=== PATIENT | male | born 1965 | race Caucasian/White ===

== ENCOUNTER → 2016-07-16 | Outpatient (CLI) | payer BC ==
--- NOTE | 2016-07-17 08:44 | XR ---
Left ankle HISTORY: Trauma and pain 3 views of the left ankle and 3 views of the left foot correlated to left foot same date Soft tissue calcification along the distribution of the posterior leg is likely due to prior trauma. Large plantar calcaneal spur is present, large enthesophyte at the insertion of the Achilles tendon. Bone mineralization and alignment are maintained. Spurring present at the intertarsal joints. There i s soft tissue swelling. No acute fracture or dislocation is evident. Ossific density distal to the fi bula distal to be well-corticated and likely due to remote trauma. Flexion deformity present at the f ifth digit. Degenerative changes present at the metatarsophalangeal joint of the first digit. IMPRESSION: Soft tissue swelling. Correlate for point tenderness, suspect remote trauma at the medial ankle.
== END | disposition home or self-care (01) ==
LOC: RADXRYALE 16:42
PROVIDERS: ATTEND Physician Assistant Medical
DX: S99.912A Unspecified injury of left ankle, initial encounter (principal); M79.89 Other specified soft tissue disorders; M79.672 Pain in left foot

== ENCOUNTER → 2018-03-19 | Outpatient (CLI) | payer BC ==
--- NOTE | 2018-03-19 12:26 | XR ---
EXAMINATION TYPE: XR cervical spine limited DATE OF EXAM: 03/19/2018 COMPARISON: NONE HISTORY: Left-sided neck pain TECHNIQUE: Three views are submitted. FINDINGS: The odontoid is intact. There are no compression deformities. The prevertebral soft tissue structur es are within normal limits. Hypertrophic and degenerative change C6-C7. IMPRESSION: 1. Degenerative disc disease C6-C7 with hypertrophic changes. Consider MRI follow-up
== END | disposition home or self-care (01) ==
LOC: RADXRYALE 11:15
PROVIDERS: ATTEND Family Medicine
DX: M50.323 Other cervical disc degeneration at C6-C7 level (principal)
CPT/HCPCS: 72040

== ENCOUNTER 2019-08-05 10:11 | Day surgery (SDC) | payer BC ==
[2019-08-04 08:25] VITALS: BMI 40.3
[2019-08-05 10:41] VITALS: RESP 16; TEMP 97.9
[2019-08-05] MEDS ORDERED: LIDOCAINE 1% 20 ML VIAL (10MG/ML) FOR IV START INTRADERMA ONE ×2 (10:43→10:44)
[2019-08-05] MEDS: LACTATED RINGERS 1,000 ML IV SCH (10:44)
[2019-08-05] MEDS ORDERED: LIDOCAINE 1% INJ 10MG/ML (20 ML MDV) ONE (11:14)
[2019-08-05] MEDS ORDERED: PROPOFOL 10 MG/ML 20 ML VIAL IV ONE (11:14)
--- NOTE | 2019-08-05 11:35 | P.PCN ---
Date of Procedure: 08/05/19 Procedure(s) Performed: BRIEF HISTORY: Patient is a 53-year-old pleasant male scheduled for an elective colonoscopy as a part of screening for colon rectal neoplasia. PROCEDURE PERFORMED: Colonoscopy with snare polypectomy. PREOPERATIVE DIAGNOSIS: Screening for colon cancer. IV sedation per Anesthesia. PROCEDURE: After informed consent was obtained, the patient, was brought into the endoscopy unit. IV sedation was administered by Anesthesia under continuous monitoring. Digital rectal examination was normal. Initially the Olympus CF-160 flexible video colonoscope was then inserted in the rectum, gradually advanced into the cecum without any difficulty. Careful examination was performed as the scope was gradually being withdrawn. Ileocecal valve and the appendiceal orifice were visualized and appeared normal. Prep was excellent. Mucosa of the cecum, ascending colon, transverse colon appeared normal. In the descending colon there was a 7-8 mm polyp that was removed by snare polypectomy. Rest of the, descending colon, sigmoid colon, and rectum appeared normal. Retroflexion was performed in the rectum and no lesions were seen. The patient tolerated the procedure well. IMPRESSION: 7-8 mm descending colon polyp status post polypectomy Rest of the colon appeared normal RECOMMENDATIONS: Findings of this examination were discussed with the patient as well as his family. He was advised to follow with the biopsy results. If the biopsy shows an adenoma he can have a repeat colonoscopy in 5 years.
[2019-08-05 11:57] VITALS: BP 132/91; PULSE 63
== END 2019-08-05 12:16 | disposition home or self-care (01) ==
LOC: ORWHC2ENDO 10:11
PROVIDERS: ATTEND Internal Medicine Gastroenterology
DX: K63.5 Polyp of colon (principal); K21.9 Gastro-esophageal reflux disease without esophagitis; I10 Essential (primary) hypertension; Z79.899 Other long term (current) drug therapy
CPT/HCPCS: 88305; 45385; J2001; J2704

== ENCOUNTER → 2020-11-06 | Outpatient (CLI) | payer BC ==
--- NOTE | 2020-11-07 10:07 | XR ---
EXAMINATION TYPE: XR knee complete LT DATE OF EXAM: 11/06/2020 CLINICAL HISTORY: Left knee pain for several months TECHNIQUE: AP, oblique, and lateral views of the left knee are obtained. COMPARISON: None. FINDINGS: There is a well corticated chronic appearing irregularity and compression deformity of the lateral tibial plateau. No evidence of dislocation. There is severe tricompartmental osteoarthritic s purring with joint space narrowing of the patellofemoral compartment. Small suprapatellar joint effus ion. IMPRESSION: 1. Well-corticated irregularity and mild compression deformity of the lateral tibial plateau. Finding s may represent sequela of nonacute tibial plateau compression fracture deformity. If there is clinic al concern for subacute tibial compression fracture injury, MRI would likely be of benefit. Orthopedi cs consult is recommended. 2. Severe tricompartmental osteoarthrosis.
== END | disposition home or self-care (01) ==
LOC: RADXRYALE 16:14
PROVIDERS: ATTEND Physician Assistant Medical
DX: M17.12 Unilateral primary osteoarthritis, left knee (principal); R93.6 Abnormal findings on diagnostic imaging of limbs

== ENCOUNTER → 2020-11-07 | Outpatient (CLI) | payer BC ==
--- NOTE | 2020-11-07 14:05 | US ---
EXAMINATION TYPE: US venous doppler duplex LE LT DATE OF EXAM: 11/07/2020 1:58 PM COMPARISON: NONE CLINICAL HISTORY: R60.9 EDEMA, M79.605 PAIN IN LT LEG. Pain in left calf. SIDE PERFORMED: Left TECHNIQUE: The lower extremity deep venous system is examined utilizing real time linear array sonog mindy with graded compression, doppler sonography and color-flow sonography. VESSELS IMAGED: Common Femoral Vein Deep Femoral Vein Greater Saphenous Vein * Femoral Vein Popliteal Vein Small Saphenous Vein * Proximal Calf Veins (* superficial vessels) Left Leg: Negative for DVT IMPRESSION: No evidence for DVT at this time.
== END | disposition home or self-care (01) ==
LOC: RADUSWWP 13:31
PROVIDERS: ATTEND Family Medicine
DX: M79.662 Pain in left lower leg (principal); M79.605 Pain in left leg

== ENCOUNTER → 2025-01-10 | Outpatient (CLI) | payer BC ==
--- NOTE | 2025-01-10 18:32 | XR ---
EXAMINATION TYPE: XR finger LT DATE OF EXAM: 01/10/2025 5:05 PM INDICATION: Patient age:Male; 59 years old; Reason for study: [id number] LT FINGER INJURY; [facility]. pain COMPARISON: None TECHNIQUE: Frontal and lateral views of the fifth digit of the left hand were obtained. FINDINGS: Acute dislocation of the fifth digit at the PIP joint. There is dorsal displacement of the middle phalanx in relation to the proximal phalanx. No acute fracture. There is surrounding soft tiss ue swelling. IMPRESSION: Acute dislocation of the fifth digit at the PIP joint. No acute fracture. A Yellow level critical message alert has been initiated for John Zapien DO via the [employer] Critical Results System on 01/10/2025 6:30 PM. This message alert has been sent to John whitley DO via the preferences provided by the clinician for the receipt of Radiology Critical Findings. Message ID [id number]. [facility], , 01/10/2025 6:30 PM
== END | disposition home or self-care (01) ==
LOC: RADXRYALE 16:54
PROVIDERS: ATTEND Family Medicine
DX: S63.257A Unspecified dislocation of left little finger, initial encounter (principal); X58.XXXA Exposure to other specified factors, initial encounter